=== PATIENT | female | born 1990 | race Caucasian/White ===

== ENCOUNTER 2018-04-20 10:51 | Emergency (ER) | payer OTHER ==
[~2018-04-20] VITALS: Ht 162.6 cm; Wt 56.2 kg
[~2018-04-20 10:51] MED LIST: OXYC1TAB9 PO; PEPCID20 MG PO; PRENATAL CAPLE1 EACH PO; PRENATE ADVANCE PO; SENOKOT TAB1 TAB PO; ZOFRAN4 MG PO
== END 2018-04-20 13:54 | disposition home or self-care (01) ==
LOC: ER 10:51
DX: S80.01XA Contusion of right knee, initial encounter (principal); W18.39XA Other fall on same level, initial encounter; Y93.89 Activity, other specified; Y92.218 Other school as the place of occurrence of the external cause; Y99.8 Other external cause status

== ENCOUNTER 2018-04-22 11:36 | Emergency (ER) | payer OTHER ==
[~2018-04-22] VITALS: Ht 162.6 cm; Wt 54.4 kg
[2018-04-22] MEDS ORDERED: DOLOGESIC 500-1 EACH PO (12:47)
[2018-04-22] MEDS ORDERED: NORFLEX100MG PO (12:47)
== END 2018-04-22 13:02 | disposition home or self-care (01) ==
LOC: ER 11:36
DX: M54.5 Low back pain (principal)

== ENCOUNTER 2018-07-07 08:37 | Emergency (ER) | payer OTHER ==
[~2018-07-07] VITALS: Ht 162.6 cm; Wt 60.8 kg
[~2018-07-07 08:37] MED LIST changes: +DOLOGESIC 500-1 EACH PO; +NORFLEX100MG PO
[2018-07-07] MEDS ORDERED: CIPRO500 MG PO (14:31)
[2018-07-07] MEDS ORDERED: ULTRACET PO (14:31)
[2018-07-07] MEDS ORDERED: URIN D.S. TABL1 EACH PO (14:31)
== END 2018-07-07 21:33 | disposition home or self-care (01) ==
LOC: ER 08:37
DX: N39.0 Urinary tract infection, site not specified (principal); R10.2 Pelvic and perineal pain